=== PATIENT | female | born 1975 | race Two or more races ===

== ENCOUNTER → 2023-10-28 | Outpatient (REF) | payer BC | LOC: M PLALAB 16:47 | PROVIDERS: ATTEND Nurse Practitioner Family | DX: N92.0 Excessive and frequent menstruation with regular cycle (principal) ==

== ENCOUNTER → 2024-01-31 | Outpatient (CLI) | payer BC | LOC: M WHC 07:23 | PROVIDERS: ATTEND Internal Medicine Hematology & Oncology | DX: C50.411 Malignant neoplasm of upper-outer quadrant of right female breast (principal) ==

== ENCOUNTER → 2024-04-19 | Outpatient (CLI) | payer BC | LOC: M WHC 13:57 | PROVIDERS: ATTEND Obstetrics & Gynecology | DX: N93.9 Abnormal uterine and vaginal bleeding, unspecified (principal); D25.0 Submucous leiomyoma of uterus; N88.8 Other specified noninflammatory disorders of cervix uteri; N83.201 Unspecified ovarian cyst, right side; R93.89 Abnormal findings on diagnostic imaging of other specified body structures ==

== ENCOUNTER → 2024-06-19 | Outpatient (REF) | payer BC ==
[2024-06-22 14:23] LABS: HPV APTIMA Not Detected (Not Detected)
== END ==
LOC: M SFHCWAGY 15:10
PROVIDERS: ATTEND Obstetrics & Gynecology
DX: N93.9 Abnormal uterine and vaginal bleeding, unspecified (principal); Z12.4 Encounter for screening for malignant neoplasm of cervix; Z01.419 Encounter for gynecological examination (general) (routine) without abnormal findings; Z77.9 Other contact with and (suspected) exposures hazardous to health

== ENCOUNTER 2024-07-10 10:20 | Day surgery (SDC) | payer BC ==
[~2024-07-10] VITALS: Ht 170.2 cm; Wt 100.0 kg
[~2024-07-10 10:20] MED LIST: CYAN500T14 PO; K2 P1TAB PO; KETOROLAC 60MG 2ML VIAL As Ordered ONE; LIDOCAINE 2% 100MG/5ML SDV (FOR ANES.) As Ordered ONE; MIDAZOLAM INJ 2MG/2ML VIAL As Ordered ONE; ONDANSETRON 4MG 2ML VIAL As Ordered ONE; ROCURONIUM BROMIDE 50MG/5ML VIAL As Ordered ONE; SUGAMMADEX SODIUM 500 MG/5 ML VIAL (BRIDION) As Ordered ONE; VITATAB73 PO; dexmedeTOMIDine (4MCG/ML)200MCG/50ML BTL (PRECEDEX) As Ordered ONE; fentaNYL 100 MCG/2 ML INJECTION As Ordered ONE; propofoL 200 MG/20 ML VIAL As Ordered ONE
[2024-07-10] MEDS ORDERED: TAMO20TA8 PO (10:43)
[2024-07-10] MEDS ORDERED: LR 1,000 ML IV SCH ×3 (10:50→13:35)
[2024-07-10] MEDS: ceFAZolin SOD 2 GM in IV 1 EA IV ONE (11:17)
[2024-07-10 11:25] LABS: HEMATOCRIT 36.9 % (36.0-47.0); HEMOGLOBIN 12.1 g/dl (12.0-15.5); MEAN CORPUSCULAR HEMOGLOBIN 28.3 pg (27.0-33.0); MEAN CORPUSCULAR HGB CONC 32.8 g/dl (32.0-36.5); MEAN CORPUSCULAR VOLUME 86.4 fl (80.0-96.0); PLATELET COUNT, AUTOMATED 180 10^3/uL (150-450); RED BLOOD COUNT 4.27 10^6/uL (4.00-5.40); WHITE BLOOD COUNT 5.4 10^3/uL (4.0-10.0)
[2024-07-10] MEDS: METHYLENE BLUE 0.5% (5MG/ML) 10 ML AMP (PROVAYBLUE) As Ordered ONE (11:55)
[2024-07-10] MEDS ORDERED: ACETAMINOPHEN 1000MG 100ML IV BAG As Ordered ONE (11:56)
[2024-07-10] MEDS ORDERED: HYDROmorphone HCL 2MG/ML 1ML VIAL As Ordered ONE (12:27)
[2024-07-10] MEDS ORDERED: fentaNYL 100 MCG/2 ML INJECTION IV PRN (13:25)
[2024-07-10] MEDS ORDERED: oxyCODONE 5MG TAB PO PRN (13:25)
[2024-07-10] MEDS ORDERED: HYDROMORPHONE HCL 0.5 MG/ 0.5 ML SYRINGE IV PRN (13:25)
[2024-07-10] MEDS ORDERED: ONDANSETRON 4MG 2ML VIAL IV PRN (13:35)
[2024-07-10] MEDS ORDERED: MORPHINE 4 MG/ML 1ML VIAL IV PRN (13:35)
[2024-07-10] MEDS ORDERED: PERCOCET 5MG/325MG TAB PO PRN ×2 (13:35)
[2024-07-10] MEDS ORDERED: COLA100C5 PO (13:43)
[2024-07-10] MEDS ORDERED: IBUP80TA PO (13:43)
[2024-07-10] MEDS ORDERED: PERCOCET PO (13:43)
[2024-07-10] MEDS: ONDANSETRON 4MG 2ML VIAL IV PRN (13:55)
[2024-07-10 14:40] VITALS: BP 103/59; TEMP 96.9; O2SAT 98
[2024-07-10 15:10] VITALS: BP 101/58; TEMP 96.9; O2SAT 95
[2024-07-10 15:40] VITALS: BP 117/75; TEMP 97.1; O2SAT 100
[2024-07-10 16:40] VITALS: BP 140/60; TEMP 97.8; O2SAT 100
[2024-07-10 17:40] VITALS: BP 117/61; TEMP 98.1; O2SAT 100
[2024-07-10 18:40] VITALS: BP 126/67; TEMP 97.1; O2SAT 100
[2024-07-10] MEDS: DOCUSATE SODIUM 100MG CAPSULE PO SCH (20:15)
[2024-07-10] MEDS: KETOROLAC 30 MG/ML 1ML VIAL IV SCH (20:15)
[2024-07-11] MEDS ORDERED: IBUPROFEN 800 MG TAB PO SCH (15:00)
== END 2024-07-10 19:58 | disposition home or self-care (01) ==
LOC: M SDC 10:20 → M RR INP 10:21 → UNDOADMOB 10:21 → M OBS 14:56 → M RR INP 14:56 → M OBS 14:56 → UNDODISOB 19:58 → M SDC 19:58
PROVIDERS: ATTEND Obstetrics & Gynecology
DX: D25.9 Leiomyoma of uterus, unspecified (principal); N80.03 Adenomyosis of the uterus; N88.8 Other specified noninflammatory disorders of cervix uteri; N83.201 Unspecified ovarian cyst, right side; N93.9 Abnormal uterine and vaginal bleeding, unspecified; R10.2 Pelvic and perineal pain; C50.911 Malignant neoplasm of unspecified site of right female breast; Z79.899 Other long term (current) drug therapy
CPT/HCPCS: 36415; 58571; 81025; 85027; 86850; 86900; 86901; 88307; J0131; J0665; J0690; J1100; J1171; J1885; J2250; J2405; J3010; Q9968; S2900

== ENCOUNTER → 2024-10-13 | Outpatient (CLI) | payer BC ==
[~2024-10-13] MED LIST changes: +COLA100C5 PO; +IBUP80TA PO; -KETOROLAC 60MG 2ML VIAL As Ordered ONE; -LIDOCAINE 2% 100MG/5ML SDV (FOR ANES.) As Ordered ONE; -MIDAZOLAM INJ 2MG/2ML VIAL As Ordered ONE; -ONDANSETRON 4MG 2ML VIAL As Ordered ONE; +PERCOCET PO; -ROCURONIUM BROMIDE 50MG/5ML VIAL As Ordered ONE; -SUGAMMADEX SODIUM 500 MG/5 ML VIAL (BRIDION) As Ordered ONE; +TAMO20TA8 PO; -dexmedeTOMIDine (4MCG/ML)200MCG/50ML BTL (PRECEDEX) As Ordered ONE; -fentaNYL 100 MCG/2 ML INJECTION As Ordered ONE; -propofoL 200 MG/20 ML VIAL As Ordered ONE
== END ==
LOC: M WHC 06:47
PROVIDERS: ATTEND Obstetrics & Gynecology
DX: Z12.31 Encounter for screening mammogram for malignant neoplasm of breast (principal)